=== PATIENT | female | born 1985 | race Hispanic/Latino ===

== ENCOUNTER 2018-04-04 06:50 | Emergency (ER) | payer OTHER ==
[2018-04-04 07:03] VITALS: O2SAT 99
[2018-04-04 07:50] LABS: BASO % 0.6 % (0.0-2.0); EOS # 0.4 K/uL (0.0-0.7); EOS % 5.5 % (0.0-4.0); HEMOGLOBIN 13.3 g/dL (11.0-16.0); LYMPH # 1.1 K/uL (1.0-4.3); LYMPH % 14.2 % (20.0-40.0); MEAN CELL VOLUME 84.9 fL (81.0-99.0); MEAN CORPUSCULAR HEMOGLOBIN 29.5 pg (27.0-31.0); MEAN CORPUSCULAR HGB CONC 34.7 g/dL (33.0-37.0); MEAN PLATELET VOLUME 8.7 fL (7.2-11.7); MONO # 0.5 K/uL (0.0-0.8); MONO % 5.7 % (0.0-10.0); NEUT # 5.8 K/uL (1.8-7.0); RBC 4.52 Mil/uL (3.80-5.20); RED CELL DISTRIBUTION WIDTH 13.9 % (11.5-14.5); WHITE BLOOD COUNT 7.9 K/uL (4.8-10.8)
[2018-04-04 08:01] LABS: ALB/GLOB RATIO 1.6 (1.0-2.1); ALBUMIN 4.3 g/dL (3.5-5.0); ALT/SGPT 21 U/L (9-52); AST/SGOT 17 U/L (14-36); BLOOD UREA NITROGEN 8 mg/dL (7-17); CALCIUM 9.3 mg/dl (8.6-10.4); GFR NON-AFRICAN AMERICAN > 60
[2018-04-04 09:40] LABS: HCG,QUALITATIVE URINE POSITIVE (NEGATIVE)
[2018-04-04 09:48] LABS: SQUAMOUS EPITHIAL < 1 /hpf (0-5); URINE BACTERIA RARE (<OCC); URINE BILIRUBIN NEGATIVE (NEGATIVE); URINE BLOOD 3+ (NEGATIVE); URINE CLARITY Clear (Clear); URINE COLOR Red (YELLOW); URINE GLUCOSE (UA) NORMAL (Normal); URINE LEUKOCYTE ESTERASE NEG Leu/uL (Negative); URINE PROTEIN 2+ mg/dL (NEGATIVE); URINE UROBILINOGEN NORMAL mg/dL (0.2-1.0)
[2018-04-04 10:35] VITALS: BP 100/64; PULSE 72; RESP 18; TEMP 98.7
--- NOTE | 2018-04-04 10:48 | C.PDOC ---
History Of Present Illness 32 yo female c/o vaginal bleeding since Sunday (2 days). She notes that it started as spotting and today it became heavier with clots. Pain is associated with some pelvic cramping. Denies dysuria, urinary frequency, vaginal discharge, vomiting, fever, or trauma. Her first visit is tomorrow. Time Seen by Provider: 04/04/18 07:10 Chief Complaint (Nursing): Female Genitourinary History Per: Patient History/Exam Limitations: no limitations Onset/Duration Of Symptoms: Days Current Symptoms Are (Timing): Still Present Past Medical History Vital Signs: Last Vital Signs Temp 98.7 F 04/04/18 10:34 Pulse 72 04/04/18 10:34 Resp 18 04/04/18 10:34 BP 100/64 04/04/18 10:34 Pulse Ox 99 04/04/18 10:34 Family History: States: Unknown Family Hx - Social History Hx Alcohol Use: No Hx Substance Use: No Review Of Systems Except As Marked, All Systems Reviewed And Found Negative. Genitourinary: Positive for: Vaginal Bleeding, Pelvic Pain Physical Exam - Physical Exam Appears: Well, Non-toxic, No Acute Distress Skin: Normal Color, Warm, Dry Head: Atraumatic, Normacephalic Eye(s): bilateral: Normal Inspection, EOMI Nose: Normal Oral Mucosa: Moist Neck: Normal, Normal ROM, Supple Chest: Symmetrical Cardiovascular: Rhythm Regular Respiratory: Normal Breath Sounds Gastrointestinal/Abdominal: Normal Exam, Soft, No Tenderness Back: Normal Inspection Extremity: Normal ROM Neurological/Psych: Oriented x3, Normal Speech ED Course And Treatment - Laboratory Results Result Diagrams: 04/04/18 07:42 04/04/18 07:42 O2 Sat by Pulse Oximetry: 99 - CT Scan/US Pelvic/Transvaginal Other Rad Studies (CT/US): Read By Radiologist, Radiology Report Reviewed CT/US Interpretation: HISTORY: bleeding. COMPARISON: None available. TECHNIQUE: Transabdominal and transvaginal pelvic ultrasound was performed. FINDINGS: UTERUS: Measures 10.2 x 4.4 x 5.5 cm. Normal in size and appearance. No fibroid or other mass lesion seen. ENDOMETRIUM: Measures 22 mm in diameter. The central endometrial echo complex is thick and heterogeneous with mild increased vascularity. There is small fluid superior endometrial cavity. CERVIX: No cervical abnormality identified. RIGHT OVARY: Measures 3.9 x 1.9 x 2.7 cm. No solid mass. Normal flow. There is a 1.6 x 1.4 x 1.5 cm cyst. LEFT O VARY: Measures 2.3 x 1.3 x 2.3 cm. No solid mass. Normal flow. FREE FLUID: Small amount of free fluid in the cul de sac. OTHER FINDINGS: None. IMPRESSION: No evidence of intrauterine gestational sac. Thick heterogeneous central endometrial echo complex with mild increased vascularity. Small amount of free fluid in the cul de sac. Progress Note: Pt declined pain medication. Pt was informed of the results, copies were given and instructed to follow up with her OB doctor tomorrow as scheduled for re-evaluation. Disposition - Disposition Disposition: HOME/ ROUTINE Disposition Time: 11:00 Condition: STABLE Additional Instructions: Your Beta HCG today was 36,000. Follow up with your OBGYN tomorrow as scheduled for re-evaluation. Return to ER if symptoms persist or worsen. Instructions: Threatened Miscarriage (DC) Forms: [employer] (Dominican) - Clinical Impression Clinical Impression: Vaginal bleeding before 22 weeks gestation
== END 2018-04-04 11:13 | disposition home or self-care (01) ==
LOC: C.ER 06:50
DX: O20.9 Hemorrhage in early pregnancy, unspecified (principal); Z3A.01 Less than 8 weeks gestation of pregnancy